=== PATIENT | female | born 1995 | race Two or more races ===

== ENCOUNTER 2016-10-20 20:46 | Emergency (ER) | payer OTHER ==
[2016-10-21] MEDS ORDERED: OXYCODONE-ACETAMINOPHEN 5-325 MG TABLET PO ONE (00:55)
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
[2016-10-21 02:37] VITALS: BP 113/81
== END 2016-10-21 02:20 | disposition home or self-care (01) ==
LOC: ER 20:46
DX: R07.89 Other chest pain (principal); M25.561 Pain in right knee; V87.7XXA Person injured in collision between other specified motor vehicles (traffic), initial encounter
CPT/HCPCS: 71020; 99284

== ENCOUNTER 2016-10-24 08:50 | Emergency (ER) | payer OTHER ==
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
[2016-10-24 10:19] VITALS: BP 138/80
== END 2016-10-24 10:20 | disposition home or self-care (01) ==
LOC: ER 08:50
DX: S80.01XA Contusion of right knee, initial encounter (principal); V89.2XXA Person injured in unspecified motor-vehicle accident, traffic, initial encounter
CPT/HCPCS: 99283

== ENCOUNTER 2016-12-18 02:25 | Emergency (ER) | payer MEDICAID, OTHER ==
[2016-12-18] MEDS ORDERED: MAG HYDROX/AL HYDROX/SIMETH SUSP 30 ML UDCUP PO ONE (03:02)
[2016-12-18] MEDS ORDERED: METOCLOPRAMIDE HCL ORAL SOLN 10 MG/10 ML UDCUP PO ONE (03:02)
[2016-12-18] MEDS ORDERED: LIDOCAINE 2% VISCOUS SOLN 20 ML UDCUP PO ONE (03:02)
[2016-12-18] MEDS ORDERED: DICYCLOMINE HCL INJ 20 MG/2 ML AMPULE IM ONE (03:37)
[2016-12-18 04:01] LABS: HEMOGLOBIN 13.7 g/dL (12.0-15.5); HGB HCT DIFFERENCE -0.9; MEAN CORPUSCULAR HEMOGLOBIN 28.5 pg (27.0-33.4); MEAN CORPUSCULAR HGB CONC 32.7 g/dL (32.0-36.0); MEAN CORPUSCULAR VOLUME 87 fl (80-97); RED BLOOD COUNT 4.83 10^6/uL (3.72-5.28); RED CELL DISTRIBUTION WIDTH 13.7 % (11.5-14.0)
[2016-12-18 04:13] LABS: ALANINE AMINOTRANSFERASE 654 U/L (9-52); ALBUMIN 4.9 g/dL (3.5-5.0); ALKALINE PHOSPHATASE 252 U/L (38-126); ANION GAP 17 (5-19); ASPARTATE AMINO TRANSFERASE 468 U/L (14-36); BILIRUBIN,DIRECT 2.8 mg/dL (0.0-0.4); BILIRUBIN,TOTAL 3.9 mg/dL (0.2-1.3); BLOOD UREA NITROGEN 8 mg/dL (7-20); CALCIUM 10.5 mg/dL (8.4-10.2); CARBON DIOXIDE 22 mmol/L (22-30); CHLORIDE 105 mmol/L (98-107); CREATININE RESULT 0.57 mg/dL (0.52-1.25); GLUCOSE 181 mg/dL (75-110); SODIUM 144.2 mmol/L (137-145); TOTAL PROTEIN 8.7 g/dL (6.3-8.2)
[2016-12-18] MEDS ORDERED: MORPHINE SULFATE 10 MG/ML INJ IV ONE ×2 (04:27→06:26)
[2016-12-18] MEDS ORDERED: AMPICILLIN SOD/SULBACTAM 3 GM VIAL IV ONE (04:34)
[2016-12-18] MEDS: NORMAL SALINE 1000 ML 1,000 ML IV PRN ×2 (04:48→05:51)
--- NOTE | 2016-12-18 04:53 | ER Document Report ---
ED General - General Chief Complaint: Epigastric Pain Stated Complaint: CHEST PAIN/DIFFICULTY BREATHING Time Seen by Provider: 12/18/16 03:02 TRAVEL OUTSIDE OF THE [place]. IN LAST 30 DAYS: No COUNTRY TRAVELED TO/FROM: [facility] - [facility] Patient complains to provider of: Epigastric pain Notes: Patient is coming in today for epigastric pain nausea vomiting ongoing for approximately 4 hours. Patient states n.p.o. for approximately last 24. Patient was given a GI cocktail while waiting to be seen with no relief of her pain. Patient states last meal system of new will then be it did increase her pain pain increase daily tonight before patient came in for further evaluation. Patient denies any alcohol abuse denies any drug abuse. Patient denies fevers chills diarrhea denies any recent travel or recent antibiotics - Related Data Allergies/Adverse Reactions: No Known Allergies Allergy (Verified 12/18/16 06:16) Home Medications: Current Home Medications No Home Medications 12/18/16 [History] Past Medical History - Social History Smoking Status: Never Smoker Chew tobacco use (# tins/day): No Frequency of alcohol use: None Drug Abuse: None Family History: Reviewed & Not Pertinent Patient has suicidal ideation: No Patient has homicidal ideation: No Renal/ Medical History: Denies: Hx Peritoneal Dialysis Past Surgical History: Reports: Hx Section - Immunizations Immunizations up to date: Yes Hx Diphtheria, Pertussis, Tetanus Vaccination: Yes - 07/06/12 Review of Systems - Review of Systems Constitutional: No symptoms reported EENT: No symptoms reported Cardiovascular: No symptoms reported Respiratory: No symptoms reported Gastrointestinal: Abdominal pain Genitourinary: No symptoms reported Female Genitourinary: No symptoms reported Musculoskeletal: No symptoms reported Skin: No symptoms reported Hematologic/Lymphatic: No symptoms reported Neurological/Psychological: No symptoms reported -: Yes All other systems reviewed and negative Physical Exam - Vital signs Vitals: Temp Pulse Resp BP Pulse Ox 97.3 F 82 20 135/82 H 99 12/18/16 02:25 12/18/16 02:25 12/18/16 02:25 12/18/16 02:25 12/18/16 02:25 Interpretation: Normal - General General appearance: Appears well, Alert - HEENT Head: Normocephalic, Atraumatic Eyes: Normal Pupils: PERRL - Respiratory Respiratory status: No respiratory distress Chest status: Nontender Breath sounds: Normal Chest palpation: Normal - Cardiovascular Rhythm: Regular Heart sounds: Normal auscultation Murmur: No - Abdominal Inspection: Normal Distension: No distension Bowel sounds: Normal Tenderness: Tender - Is mild to moderate in the epigastric right upper quadrant. , Vigil's sign. No: McBurney's point, Guarding, Rebound Organomegaly: No organomegaly - Back Back: Normal, Nontender - Extremities General upper extremity: Normal inspection, Nontender, Normal color, Normal ROM , Normal temperature General lower extremity: Normal inspection, Nontender, Normal color, Normal ROM , Normal temperature, Normal weight bearing. No: Sunil's sign - Neurological Neuro grossly intact: Yes Cognition: Normal Orientation: AAOx4 Demetris Coma Scale Eye Opening: Spontaneous Demetris Coma Scale Verbal: Oriented Demetris Coma Scale Motor: Obeys Commands [place] Coma Scale Total: 15 Speech: Normal Motor strength normal: LUE, RUE, LLE, RLE Sensory: Normal - Psychological Associated symptoms: Normal affect, Normal mood - Skin Skin Temperature: Warm Skin Moisture: Dry Skin Color: Normal Course - Re-evaluation Re-evalutation: 12/18/16 04:52 Elevation in white count significant elevation in her liver function tests. Lipase is normal. Patient initially was by have an acute abdominal series to check for any signs of possible perforation free air ultrasound will not be performed to as well 12/18/16 06:58 Patient with elevated white count ultrasound showing common bile duct dilatation concerning for choledocholithiasis with multiple gallstones within the gallbladder and gallbladder sludge. I did discuss with her surgeon rayon winder who does not do ERCPs but highly recommend patient undergo ERCP he had a GI to perform ERCP discussed with patient waiting for [facility] to return phone call 12/18/16 07:[address] Baldwin staff - Vital Signs Vital signs: Temp Pulse Resp BP Pulse Ox 97.8 F 75 22 H 141/91 H 100 12/18/16 06:13 12/18/16 06:13 12/18/16 06:13 12/18/16 06:13 12/18/16 06:13 - Laboratory Result Diagrams: 12/18/16 03:50 12/18/16 03:50 Laboratory results interpreted by me: 12/18/16 12/18/16 12/18/16 03:50 03:50 03:50 WBC 18.0 H Plt Count 501 H Seg Neuts % (Manual) 96 H Lymphocytes % (Manual) 4 L Monocytes % (Manual) 0 L Abs Neuts (Manual) 17.3 H Abs Monocytes (Manual) 0.0 L Glucose 181 H Calcium 10.5 H Total Bilirubin 3.9 H Direct Bilirubin 2.8 H AST 468 H ALT 654 H Alkaline Phosphatase 252 H Total Protein 8.7 H Urine Glucose (UA) Urine Ketones Urine Blood Acetaminophen < 10 L 12/18/16 06:10 WBC Plt Count Seg Neuts % (Manual) Lymphocytes % (Manual) Monocytes % (Manual) Abs Neuts (Manual) Abs Monocytes (Manual) Glucose Calcium Total Bilirubin Direct Bilirubin AST ALT Alkaline Phosphatase Total Protein Urine Glucose (UA) 50 H Urine Ketones 20 H Urine Blood SMALL H Acetaminophen Discharge - Discharge Clinical Impression: Choledocholithiasis Cholelithiasis Qualifiers: Cholelithiasis location: gallbladder Cholecystitis presence: without cholecystitis Biliary obstruction: with biliary obstruction Qualified Code(s): K80.21 - Calculus of gallbladder without cholecystitis with obstruction Condition: Good Disposition: [facility] Referrals: DEBRA CLARKE MD [Primary Care Provider] - Follow up as needed
[2016-12-18 05:06] LABS: BASOPHILS % (MANUAL) 0 % (0-2); EOSINOPHILS % (MANUAL) 0 % (0-6); LYMPHOCYTES % (MANUAL) 4 % (13-45); RBC MORPHOLOGY COMMENT NORMO-CYTIC/CHROMIC; TOTAL CELLS COUNTED 100
[2016-12-18 05:43] LABS: ALCOHOL < 10 mg/dL (NONE DETECTED)
--- NOTE | 2016-12-18 06:15 | RADIOLOGY REPORT (SQ) ---
EXAM DESCRIPTION: ACUTE ABDOMEN SERIES COMPLETED DATE/TIME: 12/18/2016 5:27 am REASON FOR STUDY: abd pain COMPARISON: None. NUMBER OF VIEWS: Three views. TECHNIQUE: Frontal chest, supine abdomen and upright/decubitus abdomen radiographic images acquired. LIMITATIONS: None. FINDINGS: CHEST: No consolidation, pleural effusion or pneumothorax. FREE AIR: None. BOWEL GAS PATTERN: No dilated bowel loops or air-fluid levels. CALCIFICATIONS: No suspicious calcifications. HARDWARE: None in the abdomen. SOFT TISSUES: No gross mass or suggestion of organomegaly. BONES: No acute findings. IMPRESSION: Nonobstructive bowel gas pattern. TECHNICAL DOCUMENTATION: JOB ID: [id number] [place]-[id number] 2010 [employer]- All Rights Reserved
[2016-12-18 06:22] LABS: APPEARANCE,URINE CLEAR; BILIRUBIN,URINE NEGATIVE (NEGATIVE); GLUCOSE, URINE 50 mg/dL (NEGATIVE); KETONES,URINE 20 mg/dL (NEGATIVE); LEUKOCYTE ESTERASE,URINE NEGATIVE (NEGATIVE); NITRITE,URINE NEGATIVE (NEGATIVE); PROTEIN,URINE NEGATIVE (NEGATIVE); URINE SPECIFIC GRAVITY 1.011; UROBILINOGEN,URINE NEGATIVE mg/dL (<2.0)
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
[2016-12-18] MEDS ORDERED: ONDANSETRON HCL INJ/PF 4 MG/2 ML SDV IV PRN (06:58)
[2016-12-18] MEDS ORDERED: MORPHINE SULFATE 10 MG/ML INJ IV PRN (06:58)
[2016-12-18] MEDS ORDERED: NORMAL SALINE 1000 ML 1,000 ML IV ONE (06:59)
[2016-12-18] MEDS ORDERED: MORPHINE SULFATE 10 MG/ML INJ ONE (10:57)
--- NOTE | 2016-12-18 11:57 | ER Document Report ---
Doctor's Note Notes: 12/18/16 11:56 Patient is sleeping at this time, vital signs normal. Transport should be here in the next 30 minutes to take her to [facility].
[2016-12-18] MEDS ORDERED: AMPICILLIN SOD/SULBACTAM 3 GM VIAL IV SCH (12:00)
[2016-12-18 12:55] VITALS: BP 128/70
== END 2016-12-18 12:14 | disposition short-term general hospital (02) ==
LOC: ER 02:25
DX: K80.21 Calculus of gallbladder without cholecystitis with obstruction (principal); K80.51 Calculus of bile duct without cholangitis or cholecystitis with obstruction; R10.13 Epigastric pain; R07.9 Chest pain, unspecified; R06.00 Dyspnea, unspecified; R94.5 Abnormal results of liver function studies
CPT/HCPCS: 96376; 99285; 96372; 96361; 96375; 96365; 36415; 80307 ×2; 84702; 83690; 85025; 80053; 81001; 74022; 76705; 93976; J0500; J0295; J3490 ×3; J2270; J2405; J7030

== ENCOUNTER 2017-08-16 14:28 | Emergency (ER) | payer SELFPAY ==
[2017-08-16] MEDS ORDERED: DIPH/PERTUSS(ACELL)/TETANUS VAC/PF 0.5 ML SYR (>=10YO) IM ONE (14:53)
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
[2017-08-16] MEDS ORDERED: KETOROLAC TROMETHAMINE INJ/PF 30 MG/1 ML SDV IM ONE (15:19)
== END 2017-08-16 16:00 | disposition home or self-care (01) ==
LOC: ER 14:28
DX: S10.91XA Abrasion of unspecified part of neck, initial encounter (principal); R51 Headache; W34.00XA Accidental discharge from unspecified firearms or gun, initial encounter; Y92.410 Unspecified street and highway as the place of occurrence of the external cause
CPT/HCPCS: 99283; 96372; 90471; 72125; 90715; J1885

== ENCOUNTER 2017-08-20 18:29 | Emergency (ER) | payer SELFPAY ==
[2017-08-20 18:40] VITALS: BP 117/64
[2017-08-20] MEDS ORDERED: MUPIROCIN 2% OINTMENT 22 GM TP ONE (18:53)
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
== END 2017-08-20 19:10 | disposition home or self-care (01) ==
LOC: ER 18:29
DX: S11.90XD Unspecified open wound of unspecified part of neck, subsequent encounter (principal); W34.00XD Accidental discharge from unspecified firearms or gun, subsequent encounter
CPT/HCPCS: 99282; J3490

== ENCOUNTER 2019-01-16 01:54 | Emergency (ER) | payer MEDICAID ==
[2019-01-16 02:07] VITALS: BP 142/94
--- NOTE | 2019-01-16 02:35 | ER Document Report ---
ED General - General Chief Complaint: Abdominal Pain Stated Complaint: ABDOMINAL PAIN Time Seen by Provider: 01/16/19 02:29 Primary Care Provider: STEPHANIE BUSTILLO MD [COMMUNITY BASED STAFF] - Follow up in 3-5 days (or your primary care. ) Notes: Patient is a 23-year-old female that presents to the emergency department for chief complaint of lower abdominal pain. Patient reports she is been having this pain for about a day now, she describes having pain both in the right lower and left lower quadrants, worse on the right, she said associated nausea, vomiting and diarrhea with this as well. She also reports having dysuria, but denies having any hematuria. She states it feels like when she was having pain associated with her gallbladder prior to her cholecystectomy. She currently rates her pain as a 6 out of 10 describes it as sharp and severe pain in her right lower quadrant of her abdomen and just under her umbilicus. Denies any sick contacts that she is aware. Denies any abnormal vaginal bleeding or discharge. Past Medical History: Denies chronic medical conditions Past Surgical History: Cholecystectomy Social History: Admits to occasional alcohol use, denies tobacco or illicit drug use. Family History: Reviewed and noncontributory for presenting illness Allergies: Reviewed, see documented allergy list. REVIEW OF SYSTEMS: Other than noted above, the 12 point review of systems was reviewed with the patient and were negative, all pertinent findings are included in the HPI. PHYSICAL EXAMINATION: Vital signs reviewed, nursing noted reviewed. GENERAL: Patient appears uncomfortable on exam, but no acute distress HEAD: Atraumatic, normocephalic. EYES: Eyes appear normal, extraocular movements intact, sclera anicteric, conjunctiva are normal. ENT: nares patent, oropharynx clear without exudates. Moist mucous membranes. NECK: Normal range of motion, supple without lymphadenopathy LUNGS: Breath sounds clear to auscultation bilaterally and equal. No wheezes rales or rhonchi. HEART: Regular rate and rhythm without murmurs ABDOMEN: Soft, suprapubic tenderness to palpation, as well as bilateral lower abdominal tenderness with palpation, normoactive bowel sounds. No rebound, guarding, or rigidity. No masses appreciated. EXTREMITIES: Nontender, good range of motion, no pitting or edema. NEUROLOGICAL: No focal neurological deficits. Moves all extremities spontaneou sly Motor and sensory grossly intact on exam. PSYCH: Normal mood, normal affect. SKIN: Warm, Dry, normal turgor, no rashes or lesions noted on exposed skin TRAVEL OUTSIDE OF THE [place] IN LAST 30 DAYS: No COUNTRY TRAVELED TO/FROM: [facility] - Related Data Allergies/Adverse Reactions: No Known Allergies Allergy (Verified 01/16/19 02:07) Past Medical History - Social History Smoking Status: Never Smoker Family History: Reviewed & Not Pertinent Renal/ Medical History: Denies: Hx Peritoneal Dialysis Past Surgical History: Reports: Hx Section - Immunizations Immunizations up to date: Yes Hx Diphtheria, Pertussis, Tetanus Vaccination: Yes - 07/06/12 Physical Exam - Vital signs Vitals: Temp Pulse Resp BP Pulse Ox 98.2 F 108 H 16 142/94 H 96 01/16/19 02:06 01/16/19 02:06 01/16/19 02:06 01/16/19 02:06 01/16/19 02:06 Course - Re-evaluation Re-evalutation: Patient seen and examined vital signs reviewed. Laboratory data and/or imaging were ordered as appropriate for the patient's presenting symptoms and complaint, with consideration of any critical or life threatening conditions that may be associated with their obtained history and exam as noted above. Patient was treated with IV fluids, Zofran and morphine. Results were reviewed when available and demonstrated leukocytosis of 17.8, UA demonstrated possible signs of urinary tract infection although not entirely convincing, patient was treated with Rocephin however, and given some Toradol because she was still having some pain, but overall she was feeling better. Evaluation was most consistent with enterocolitis based on CT imaging, and this was consistent the patient's clinical presentation of nausea, vomiting diarrhea, we will treat her with Augmentin, which will cover her possible UTI as well, given prescription for Bentyl and advised to follow-up with her primary care. Results were discussed with the patient at this point, after careful considerat ion I feel that that patient can be discharged from the emergency department, the patient was educated treatments and reasons to return to the emergency department based on their presumed diagnosis as noted above, they were advised to followup with a primary care physician in 2-3 days. Patient was agreeable to plan of care. *Note is created using voice recognition software and may contain spelling, syntax or grammatical errors. Laboratory 01/16/19 01/16/19 01/16/19 03:00 03:00 03:00 WBC 17.8 H RBC 4.48 Hgb 13.5 Hct 40.6 MCV 91 MCH 30.1 MCHC 33.3 RDW 14.6 H Plt Count 303 Seg Neutrophils % 73.2 Lymphocytes % 17.8 Monocytes % 6.9 Eosinophils % 1.7 Basophils % 0.4 Absolute Neutrophils 13.0 H Absolute Lymphocytes 3.2 Absolute Monocytes 1.2 Absolute Eosinophils 0.3 Absolute Basophils 0.1 Sodium Cancelled Potassium Cancelled Chloride Cancelled Carbon Dioxide Cancelled Anion Gap Cancelled BUN Cancelled Creatinine Cancelled Est GFR ( Amer) Cancelled Est GFR (Non-Af Amer) Cancelled Glucose Cancelled Calcium Cancelled Total Bilirubin Cancelled Direct Bilirubin Cancelled Neonat Total Bilirubin Cancelled Neonat Direct Bilirubin Cancelled Neonat Indirect Bili Cancelled AST Cancelled ALT Cancelled Alkaline Phosphatase Cancelled Total Protein Cancelled Albumin Cancelled Lipase Cancelled Serum HCG, Qual NEGATIVE Urine Color Urine Appearance Urine pH Ur Specific [place] Urine Protein Urine Glucose (UA) Urine Ketones Urine Blood Urine Nitrite Urine Bilirubin Urine Urobilinogen Ur Leukocyte Esterase Urine WBC (Auto) Urine RBC (Auto) Squamous Epi Cells Auto Urine Mucus (Auto) Urine Ascorbic Acid 01/16/19 01/16/19 03:00 04:07 WBC RBC Hgb Hct MCV MCH MCHC RDW Plt Count Seg Neutrophils % Lymphocytes % Monocytes % Eosinophils % Basophils % Absolute Neutrophils Absolute Lymphocytes Absolute Monocytes Absolute Eosinophils Absolute Basophils Sodium 137.0 Potassium 4.1 Chloride 99 Carbon Dioxide 30 Anion Gap 8 BUN 5 L Creatinine 0.57 Est GFR ( Amer) > 60 Est GFR (Non-Af Amer) > 60 Glucose 102 Calcium 9.1 Total Bilirubin 0.7 Direct Bilirubin 0.2 Neonat Total Bilirubin Not Reportable Neonat Direct Bilirubin Not Reportable Neonat Indirect Bili Not Reportable AST 13 L ALT 15 Alkaline Phosphatase 73 Total Protein 7.0 Albumin 3.9 Lipase 51.1 Serum HCG, Qual Urine Color YELLOW Urine Appearance SLIGHTLY-CLOUDY Urine pH 6.0 Ur Specific [place] 1.021 Urine Protein 30 H Urine Glucose (UA) NEGATIVE Urine Ketones NEGATIVE Urine Blood NEGATIVE Urine Nitrite NEGATIVE Urine Bilirubin NEGATIVE Urine Urobilinogen 4.0 H Ur Leukocyte Esterase MODERATE H Urine WBC (Auto) 117 Urine RBC (Auto) 10 Squamous Epi Cells Auto 2 Urine Mucus (Auto) MANY Urine Ascorbic Acid 40 H Abdomen/Pelvis CT 01/16/19 02:59 IMPRESSION: 1. Findings compatible with nonspecific enterocolitis. This may be of infectious or inflammatory etiology. 2. Pneumobilia likely related to prior cholecystectomy. This exam was performed according to our departmental dose-optimization program, which includes automated exposure control, adjustment of the mA and/or kV according to patient size and/or use of iterative reconstruction technique. - Vital Signs Vital signs: Temp Pulse Resp BP Pulse Ox 98.2 F 108 H 16 142/94 H 96 01/16/19 02:06 01/16/19 02:06 01/16/19 02:06 01/16/19 02:06 01/16/19 02:06 - Laboratory Result Diagrams: 01/16/19 03:00 01/16/19 04:07 Laboratory results interpreted by me: 01/16/19 01/16/19 01/16/19 03:00 03:00 04:07 WBC 17.8 H RDW 14.6 H Absolute Neutrophils 13.0 H BUN 5 L AST 13 L Urine Protein 30 H Urine Urobilinogen 4.0 H Ur Leukocyte Esterase MODERATE H Urine Ascorbic Acid 40 H Discharge - Discharge Clinical Impression: Enteritis UTI (urinary tract infection) Qualifiers: Urinary tract infection type: site unspecified Hematuria presence: without hematuria Qualified Code(s): N39.0 - Urinary tract infection, site not specified Condition: Stable Disposition: HOME, SELF-CARE Instructions: Colitis, Nonspecific ([facility]), Urinary Tract Infection ([facility]) Additional Instructions: Please complete the entire course of antibiotics as prescribed, and you can take the prescribed Bentyl to help with abdominal cramping and pain, even dispense Zofran which is an antinausea medicine to take if needed every 6-8 hours for nausea and vomiting. Please follow-up with your primary care physician, call for an appointment. Prescriptions: Amox Tr/Potassium Clavulanate [Augmentin 875-125 Tablet] 1 tab PO BID 7 Days #14 tablet Dicyclomine HCl [Bentyl 20 mg Tablet] 20 mg PO QID PRN #40 tablet PRN Reason: abdominal pain Referrals: STEPHANIE BUSTILLO MD [COMMUNITY BASED STAFF] - Follow up in 3-5 days (or your primary care. )
[2019-01-16] MEDS ORDERED: MORPHINE SULFATE 10 MG/ML INJ IV ONE (02:42)
[2019-01-16] MEDS ORDERED: ONDANSETRON HCL INJ/PF 4 MG/2 ML SDV IV ONE (02:42)
[2019-01-16] MEDS ORDERED: NORMAL SALINE 1000 ML 1,000 ML IV ONE (02:42)
[2019-01-16 03:12] LABS: ABSOLUTE BASOPHILS # (AUTO) 0.1 10^3/uL (0.0-0.2); ABSOLUTE EOSINOPHILS # (AUTO) 0.3 10^3/uL (0.0-0.6); ABSOLUTE LYMPHOCYTES (AUTO) 3.2 10^3/uL (0.5-4.7); ABSOLUTE MONOCYTES (AUTO) 1.2 10^3/uL (0.1-1.4); BASOPHILS % (AUTO) 0.4 % (0-2); EOSINOPHILS % (AUTO) 1.7 % (0-6); HEMATOCRIT 40.6 % (36.0-47.0); HEMOGLOBIN 13.5 g/dL (12.0-15.5); LYMPHOCYTES % (AUTO) 17.8 % (13-45); MEAN CORPUSCULAR HEMOGLOBIN 30.1 pg (27.0-33.4); MEAN CORPUSCULAR HGB CONC 33.3 g/dL (32.0-36.0); MEAN CORPUSCULAR VOLUME 91 fl (80-97); MONOCYTES % (AUTO) 6.9 % (3-13); PLATELET COUNT 303 10^3/uL (150-450); RED BLOOD COUNT 4.48 10^6/uL (3.72-5.28); RED CELL DISTRIBUTION WIDTH 14.6 % (11.5-14.0); SEGMENTED NEUTROPHILS % (AUTO) 73.2 % (42-78); TOTAL CELLS COUNTED % (AUTO) 100 %; WHITE BLOOD COUNT 17.8 10^3/uL (4.0-10.5)
[2019-01-16 03:20] LABS: APPEARANCE,URINE SLIGHTLY-CLOUDY; BILIRUBIN,URINE NEGATIVE (NEGATIVE); COLOR,URINE YELLOW; GLUCOSE, URINE NEGATIVE (NEGATIVE); KETONES,URINE NEGATIVE (NEGATIVE); LEUKOCYTE ESTERASE,URINE MODERATE (NEGATIVE); NITRITE,URINE NEGATIVE (NEGATIVE); PROTEIN,URINE 30 mg/dL (NEGATIVE); URINE SPECIFIC GRAVITY 1.021
--- NOTE | 2019-01-16 04:25 | RADIOLOGY REPORT (SQ) ---
EXAM DESCRIPTION: CT ABDOMEN PELVIS WITH IV CONTRAST COMPLETED DATE/TME: 01/16/2019 02:59 CLINICAL HISTORY: rlq abdominal pain COMPARISON: None Available. TECHNIQUE: CT of the abdomen and pelvis performed following IV administration of 78 mL of Omnipaque 350. DLP: 657 mGycm FINDINGS: Lung Bases: The visualized lung bases are clear. Bones: No destructive bone lesions identified. Abdomen: Liver: The liver has normal size and density. No intrahepatic mass or biliary dilatation. Air in the biliary system. Gallbladder: Prior cholecystectomy. Spleen, Pancreas, and Adrenal Glands: The spleen, pancreas, and adrenal glands are unremarkable. Kidneys: The kidneys have normal size and contour without evidence of solid mass or hydronephrosis. Vasculature: The aorta and IVC have normal caliber and position. The portal vein is patent. The proximal visceral and renal arteries are patent. Stomach: The stomach and duodenum have normal course. Other: No free intraperitoneal air. Small free fluid. Pelvis: Bladder: Urinary bladder is unremarkable. Bowel: Mild wall thickening of the sigmoid colon as well as mild wall thickening of loops of small bowel in the right abdomen with mild mesenteric fat stranding. No dilated loops of large or small bowel. Appendix: Normal appendix. Pelvis: Uterus is not enlarged. IMPRESSION: 1. Findings compatible with nonspecific enterocolitis. This may be of infectious or inflammatory etiology. 2. Pneumobilia likely related to prior cholecystectomy. This exam was performed according to our departmental dose-optimization program, which includes automated exposure control, adjustment of the mA and/or kV according to patient size and/or use of iterative reconstruction technique.
[2019-01-16] MEDS ORDERED: CEFTRIAXONE 1 GM/D5W RTU 1 GM/50 ML RTUPB IV ONE (04:28)
[2019-01-16 04:37] LABS: ALBUMIN 3.9 g/dL (3.5-5.0); ALKALINE PHOSPHATASE 73 U/L (38-126); ASPARTATE AMINO TRANSFERASE 13 U/L (14-36); BILIRUBIN,DIRECT 0.2 mg/dL (0.0-0.4); BILIRUBIN,TOTAL 0.7 mg/dL (0.2-1.3); CALCIUM 9.1 mg/dL (8.4-10.2); CARBON DIOXIDE 30 mmol/L (22-30); GLUCOSE 102 mg/dL (75-110)
[2019-01-16 04:39] LABS: ANION GAP 8 (5-19); CHLORIDE 99 mmol/L (98-107)
[2019-01-16 04:40] LABS: ALANINE AMINOTRANSFERASE 15 U/L (9-52); BLOOD UREA NITROGEN 5 mg/dL (7-20); LIPASE 51.1 U/L (23-300); POTASSIUM 4.1 mmol/L (3.6-5.0)
[2019-01-16] MEDS ORDERED: KETOROLAC TROMETHAMINE INJ/PF 30 MG/1 ML SDV IV ONE (04:51)
[2019-01-16] MEDS ORDERED: ONDANSETRON ODT 4 MG TAB (6 TAB/ER DISP) PO PRN (04:52)
== END 2019-01-16 05:52 | disposition home or self-care (01) ==
LOC: ER 01:54
DX: K52.9 Noninfective gastroenteritis and colitis, unspecified (principal); N39.0 Urinary tract infection, site not specified; R10.31 Right lower quadrant pain; R10.32 Left lower quadrant pain; R30.0 Dysuria; R11.2 Nausea with vomiting, unspecified; Z90.49 Acquired absence of other specified parts of digestive tract
CPT/HCPCS: 99284; 96375; 96365; 36415; 83690; 84703; 85025; 80053; 81001; 74177; J1885; J2270; J2405; J7030; J0696